=== PATIENT | female | born 1955 | race Caucasian/White ===

== ENCOUNTER 2017-04-06 12:50 | Observation (INO) | payer OTHER ==
[2017-04-06 16:04] VITALS: PULSE 51
[2017-04-06] MEDS ORDERED: ACETAMINOPHEN 325 MG TAB PO PRN (16:30)
[2017-04-06] MEDS ORDERED: MAGNESIUM HYDROXIDE 30ML CUP PO PRN (16:30)
[2017-04-06] MEDS ORDERED: HYDROCODONE/APAP (5/325) TAB PO PRN (16:30)
[2017-04-06] MEDS ORDERED: DOCUSATE SODIUM 100 MG CAP PO PRN (16:30)
[2017-04-06] MEDS ORDERED: NACL 0.9% 3 ML SYG IV SCH (16:30)
--- NOTE | 2017-04-06 17:01 | HP ---
Date/Time of Note Date/Time of Note DATE: 04/06/17 TIME: 16:46 Assessment/Plan VTE Prophylaxis VTE Prophylaxis Intervention: SCD's Assessment/Plan Assessment/Plan 61 yo F with pmhx CAD sp PCI with 2 weeks of chest pain in setting of subacute cough. d/dx includes ACS (unlikely given duration of symptoms), v angina v other PLAN serial troponins TTE lipids, a1c, tsh cont home meds will try to reach pt's collector of port in the AM HPI/ROS Admit Date/Time Admit Date/Time Apr 06, 2017 at 14:15 Hx of Present Illness CC chest pain x 2 weeks HPI 61 yo F with pmhx CAD sp PCI July 2016, HTN, HL presents with 2 weeks of progressive chest pain in the setting of subacute cough x 4 weeks. Pt went to PCP 10 days ago for this coughing and chest discomfort, had negative CXR and was diagnosed with bronchitis given a course of abx, and her chest pain has persisted. Pt reports the discomfort includes all of her chest from the bottom of her neck to the top of her abdomen, occasionally radiates to her R arm. No leg swelling. No rashes. Also has SOB during these episodes. No orthopnea. home meds: asa, plavix, atorva, lisinopril PMHx as per HPI Soc Hx: lives in the community with and daughter Exam/Review of Systems Vital Signs Vitals Vital Signs Date Time Temp Pulse Resp B/P Pulse Ox O2 Delivery O2 Flow Rate FiO2 04/06/17 16:04 51 Exam Exam nad EOMI MMM no thyromegaly no cervical LAD no mrg lungs clear abd soft no rashes no edema OSH labs reviewed. ChemP with Cr 0.73, gluc 104, d dimer 0.2, lipase 32, trop at noon <0.01 CBC iwth WBCs 4.5, hgb 13.8, pl 188 EKG with WTc 424, sinus shawn with rate 53 Medications Medications Current Medications Aspirin (Aspirin) 81 mg DAILY PO ; Start 04/07/17 at 09:00 Acetaminophen (Tylenol Tab) 650 mg Q6H PRN PO PAIN LEVEL 1-3 OR FEVER; Start 04/06/17 at 16:30 Acetaminophen/ Hydrocodone Bitart (Clarkia (5/325)) 1 tab Q6H PRN PO PAIN LEVEL 4 -6; Start 04/06/17 at 16:30 Docusate Sodium (Colace) 100 mg Q12H PRN PO CONSTIPATION; Start 04/06/17 at 16 :30 Magnesium Hydroxide (Milk Of Mag) 30 ml DAILY PRN PO CONSTIPATION; Start 04/06 at 16:30 Enoxaparin Sodium (Lovenox) 40 mg DAILY SC ; Start 04/07/17 at 09:00 IDRIS WOODSON MD Apr 06, 2017 17:00
[2017-04-06 19:47] VITALS: BP 116/70; RESP 20
[2017-04-06 20:07] VITALS: PULSE 51
[2017-04-06] MEDS ORDERED: ATORVASTATIN 40 MG TAB PO SCH (21:00)
--- NOTE | 2017-04-06 23:12 | RADRPT ---
PROCEDURE: XR Chest. CLINICAL INDICATION: CHEST PAIN TECHNIQUE: PA and Lateral views of the chest were obtained. COMPARISON: None. FINDINGS: The cardiomediastinal silhouette is within normal limits. The lungs are clear. No signs of pleural f luid or pneumothorax are seen. No suspicious osseous lesions. IMPRESSION: No evidence for active cardiopulmonary disease. [place] Physician Date Time Electronically viewed and signed by [place] Physician on 04/06/2017 23:12 ML/
[2017-04-06 23:40] VITALS: BP 111/67; RESP 18
[2017-04-07] VITALS (9 sets, daily range): BP systolic 94–142; BP diastolic 55–84; PULSE 45–57; RESP 17–20
[2017-04-07 07:24] LABS: BASOPHILS % 0.5 % (0.0-2.0); EOSINOPHILS # 0.2 10^3/ul (0.0-0.5); EOSINOPHILS % 2.6 % (0.0-7.0); HEMATOCRIT 40.4 % (37.0-47.0); HEMOGLOBIN 13.4 g/dl (12.0-16.0); LYMPHOCYTES # 2.7 10^3/ul (0.8-2.9); LYMPHOCYTES % 46.9 % (15.0-51.0); MEAN CORPUSCULAR HEMOGLOBIN 30.7 pg (29.0-33.0); MEAN CORPUSCULAR HGB CONC 33.2 g/dl (32.0-37.0); MEAN CORPUSCULAR VOLUME 92.7 fl (82.0-101.0); MEAN PLATELET VOLUME 10.1 fl (7.4-10.4); MONOCYTE # 0.4 10^3/ul (0.3-0.9); MONOCYTES % 7.2 % (0.0-11.0); NEUTROPHIL # 2.4 10^3/ul (1.6-7.5); NEUTROPHILS % 42.4 % (39.0-77.0); PLATELET COUNT 188 10^3/UL (140-415); RED BLOOD COUNT 4.36 10^6/ul (4.20-5.40); WHITE BLOOD COUNT 5.7 10^3/ul (4.8-10.8)
[2017-04-07] MEDS ORDERED: SOD CHLORIDE 0.9% 250 ML IV ONE (07:30)
[2017-04-07] MEDS ORDERED: NITROGLYCERIN (SL) 0.4 MG TAB SL ONE (07:30)
[2017-04-07 07:43] LABS: ALBUMIN 4.1 g/dl (3.3-4.9); ALBUMIN/GLOBULIN RATIO 1.46; BILIRUBIN,INDIRECT 0.8 mg/dl (0-1.1); BILIRUBIN,TOTAL 0.8 mg/dl (0.2-1.3); CALCIUM 9.7 mg/dl (8.4-10.2); CREATININE 0.84 mg/dl (0.44-1.00); MAGNESIUM 1.8 mg/dl (1.7-2.5); POTASSIUM 4.7 mmol/L (3.5-5.1); TOTAL PROTEIN 6.9 g/dl (6.1-8.1)
--- NOTE | 2017-04-07 08:04 | RADRPT ---
PROCEDURE: US Abdomen (right upper quadrant). CLINICAL INDICATION: Right upper quadrant abdomen pain. TECHNIQUE: Multiple real-time longitudinal and transverse images of the right upper quadrant of th e abdomen were acquired utilizing a curved array transducer. Images were reviewed on a high-resoluti on PACS workstation. COMPARISON: None FINDINGS: The liver is normal in size and normal in echogenicity. There is no focal hepatic lesion. Color Doppler and pulsed Doppler sonography demonstrate normal a ntegrade flow in the portal vein. There may be a small amount of sludge in the gallbladder. The gallbladder is otherwise normal with n o stones or wall thickening. There is no pericholecystic fluid collection. The bile ducts are mildly dilated with the common bile duct measuring 7.5 mm in diameter. The visualized portions of the pancreas are unremarkable with obscuration of the tail of the pancrea s. No free fluid is present. The right kidney measures 11.8 cm. There is normal echogenicity of the right kidney. There is no perinephric fluid collection. No hydronephrosis, mass, or calculus is seen. IMPRESSION: 1. Possible small amount of sludge in the gallbladder. 2. Mildly dilated common bile duct. Correlation with MRCP should be considered. 3. Otherwise normal right upper quadrant abdomen ultrasound. RPTAT: QQ .Samuel Shrestha MD, MD Date Time Electronically viewed and signed by .Samuel Shrestha MD, on 04/07/2017 08:04 .R/
[2017-04-07 08:12] LABS: THYROID STIMULATING HORMONE 1.37 MIU/L (0.465-4.680)
[2017-04-07 08:23] LABS: CK-MB 0.78 ng/ml (0.0-2.4)
[2017-04-07 08:33] LABS: TROPONIN-I < 0.012 ng/ml (0.00-0.12)
[2017-04-07] MEDS ORDERED: LISINOPRIL 5 MG TAB PO SCH (09:00)
[2017-04-07] MEDS ORDERED: ASPIRIN 81 MG TAB PO SCH (09:00)
[2017-04-07] MEDS ORDERED: ENOXAPARIN 40 MG/0.4 ML SYG SC SCH (09:00)
[2017-04-07] MEDS ORDERED: CLOPIDOGREL 75 MG TAB PO SCH (09:00)
--- NOTE | 2017-04-07 11:39 | RADRPT ---
Echocardiogram Report Patient Name: BETHANY COOPER Gender: Female Date: 1955 Study Date: 07-Apr-2017 Hat Steamer: Augustin Manzo [facility] Location: 5545-A Ref. Physician: IDRIS WOODSON Quality: Adequate Procedures: Transthoracic echocardiogram with complete 2D, M-Mode, and doppler examination. Indications: Chest Pain. 2D/M Mode Doppler Measurement Value Normal Ranges Measurement Value Normal Ranges LVIDd 2D 4.7 3.5 - 5.6 cm AV Peak Navjot 1.6 m/sec LVIDs 2D 3.2 2.1 - 4.1 cm AV Peak PG 10.5 mmHg LVPWd 2D 1.3 0.6 - 1.1 cm LVOT Peak Navjot 1.2 m/sec IVSd 2D 1.3 0.6 - 1.1 cm LVOT Peak PG 5.4 mmHg AoR Diam 2D 2.9 2.0 - 3.7 cm MV E Peak Navjot 0.7 m/sec EDV 2D 100.3 cm3 MV A Peak Navjot 0.7 m/sec ESV 2D 33.1 cm3 MV E/A 1.0 LA Dimen 2D 4.0 2.3 - 4.0 cm MV Decel Time 258 msec MV Decel Hardy 3 MV E/A 1.0 TR Peak Navjot 2.4 m/sec TR Peak PG 23.0 mmHg RVSP 31.0 mmHg Findings Left Ventricle: Normal left ventricular systolic function. Normal left ventricular cavity size. Normal left ventricular wall thickness. Ejection fraction is visually estimated at 65 %. Tissue Doppler/Mitral Doppler indices are within normal limits. Right Ventricle: Normal right ventricular size. Normal right ventricular systolic function. Left Atrium: The left atrium is normal in size. Right Atrium: The right atrium is normal in size. Mitral Valve: Normal appearance and function of the mitral valve with trace physiologic regurgitation. Aortic Valve: Normal appearance of the aortic valve. No significant aortic stenosis or insufficiency. Tricuspid Valve: Normal appearance of the tricuspid valve. Estimated peak PA systolic pressure 25 mmHg. There is trace tricuspid regurgitation. Pulmonic Valve: Pulmonic valve not well visualized. There is trace pulmonic regurgitation. Pericardium: Normal pericardium with no significant pericardial effusion. Aorta: Normal aortic root. IVC: Normal size and normal respiratory collapse consistent with normal right atrial pressure. Conclusions 1.Normal left ventricular systolic function. Normal left ventricular cavity size. Normal left ventricular wall thickness. Ejection fraction is visually estimated at 65 %. Tissue Doppler/Mitral Doppler indices are within normal limits. 2.No significant valvular stenosis or regurgitation seen. 3.Estimated peak PA systolic pressure 25 mmHg based on RA pressure of 3 mmHg. Electronically Signed By: Ino Cano 07-Apr-2017 11:38:33 -0800 Patient Name: BETHANY COOPER Study Date: 07-Apr-2017 [id number]
--- NOTE | 2017-04-07 13:21 | RADRPT ---
Vent Rate: 49 bpm RR Interval: 0 msec KS Interval: 142 msec QRS Duration: 100 msec QT Interval: 464 msec QTC Interval: 419 msec P-R-T Romeo: 18 - 7 - 23 degrees Marked sinus bradycardia Abnormal ECG Electronically Signed By: Jared Bunn [id number]
[2017-04-07] MEDS ORDERED: LISI2.5T59 PO (14:42)
[2017-04-07] MEDS ORDERED: ASPI81TA3 PO (14:42)
[2017-04-07] MEDS ORDERED: CLOP75TA28 PO (14:42)
[2017-04-07] MEDS ORDERED: ATOR40TA68 PO (14:42)
[2017-04-07] MEDS ORDERED: PANT40TA3 PO (14:43)
--- NOTE | 2017-04-07 14:51 | DS ---
Date/Time of Note Date/Time of Note DATE: 04/07/17 TIME: 14:45 Discharge Summary Admission/Discharge Info Admit Date/Time Apr 06, 2017 at 14:15 Discharge Date/Time Discharge Diagnosis 1. Chest pain, musculoskeletal, follow up with PCP 2. CAD, s/p PCI/stent in July 2016 in [facility], stable, follow up with cardiology 3. GERD, protonix 3. Hypertension, decrease lisinopril for low BP 5. Dyslipidemia, on statin Patient Condition: Stable Hx of Present Illness Hospital Course 61 yo F with pmhx CAD sp PCI July 2016, HTN, HL presents with 2 weeks of progressive chest pain in the setting of subacute cough x 4 weeks. Pt went to PCP 10 days ago for this coughing and chest discomfort, had negative CXR and was diagnosed with bronchitis given a course of abx, and her chest pain has persisted. Pt reports the discomfort includes all of her chest from the bottom of her neck to the top of her abdomen, occasionally radiates to her R arm. No leg swelling. No rashes. Also has SOB during these episodes. No orthopnea. Physical exam with chest wall tenderness on left side chest. Troponin is negative. Unremarkable ECG and echocardiography. Chest pain is considered musculoskeletal, she can talk motrin prn and follow up with PCP. Patient has burning like retrosternal chest pain some nights on laying down, improves with drinking water. I will start her on protonix for GERD. She is advised to quit smoking. Home Meds Active Scripts Pantoprazole* (Protonix*) 40 Mg Tablet.dr, 40 MG PO DAILY, #30 TAB Prov:ROSELIA DOSHI MD 04/07/17 Lisinopril* (Lisinopril*) 2.5 Mg Tablet, 2.5 MG PO DAILY, #30 TAB Prov:ROSELIA DOSHI MD 04/07/17 Aspirin (Aspirin) 81 Mg Chew, 81 MG PO DAILY for 30 Days, TAB Prov:ROSELIA DOSHI MD 04/07/17 Atorvastatin* (Atorvastatin*) 40 Mg Tablet, 40 MG PO HS for 30 Days, TAB Prov:ROSELIA DOSHI MD 04/07/17 Clopidogrel Bisulfate (Clopidogrel) 75 Mg Tablet, 75 MG PO DAILY for 30 Days, TAB Prov:ROSELIA DOSHI MD 04/07/17 Follow-up Plan PCP one week cardiology one week Primary Care Provider Not On Staff Doctor Pending Labs Laboratory Tests Test 04/06/17 17:56 04/07/17 00:48 04/07/17 06:46 04/07/17 06:49 Troponin I < 0.012ng/ml (0.00-0.12) < 0.012ng/ml (0.00-0.12) < 0.012ng/ml (0.00-0.12) White Blood Count 5.710^3/ul (4.8-10.8) Red Blood Count 4.3610^6/ul (4.20-5.40) Hemoglobin 13.4g/dl (12.0-16.0) Hematocrit 40.4% (37.0-47.0) Mean Corpuscular Volume 92.7fl (82.0-101.0) Mean Corpuscular Hemoglobin 30.7pg (29.0-33.0) Mean Corpuscular Hemoglobin Concent 33.2g/dl (32.0-37.0) Red Cell Distribution Width 13.0% (11.5-14.5) Platelet Count 45859^3/UL (140-415) Mean Platelet Volume 10.1fl (7.4-10.4) Neutrophils % 42.4% (39.0-77.0) Lymphocytes % 46.9% (15.0-51.0) Monocytes % 7.2% (0.0-11.0) Eosinophils % 2.6% (0.0-7.0) Basophils % 0.5% (0.0-2.0) Nucleated Red Blood Cells % 0.0/100WBC (0.0-0.0) Neutrophils # 2.410^3/ul (1.6-7.5) Lymphocytes # 2.710^3/ul (0.8-2.9) Monocytes # 0.410^3/ul (0.3-0.9) Eosinophils # 0.210^3/ul (0.0-0.5) Basophils # 0.010^3/ul (0.0-0.1) Nucleated Red Blood Cells # 0.010^3/ul (0.0-0.0) Sodium Level 143mmol/L (135-144) Potassium Level 4.7mmol/L (3.5-5.1) Chloride Level 110mmol/L (97-110) Carbon Dioxide Level 25mmol/L (21-31) Anion Gap 13 (8-16) Blood Urea Nitrogen 16mg/dl (7-20) Creatinine 0.84mg/dl (0.44-1.00) Glucose Level 84mg/dl (70-220) Hemoglobin A1c 5.7% (0-5.9) Calcium Level 9.7mg/dl (8.4-10.2) Magnesium Level 1.8mg/dl (1.7-2.5) Total Bilirubin 0.8mg/dl (0.2-1.3) Direct Bilirubin 0.00mg/dl (0.00-0.20) Indirect Bilirubin 0.8mg/dl (0-1.1) Aspartate Amino Transf (AST/SGOT) 22IU/L (15-46) Alanine Aminotransferase (ALT/SGPT) 35IU/L (13-69) Alkaline Phosphatase 59IU/L (42-121) B-Type Natriuretic Peptide 208PG/ML (0-125) Total Protein 6.9g/dl (6.1-8.1) Albumin 4.1g/dl (3.3-4.9) Globulin 2.80g/dl (1.3-3.2) Albumin/Globulin Ratio 1.46 Triglycerides Level 141mg/dl (0-149) Cholesterol Level 173mg/dl (100-200) LDL Cholesterol, Calculated 89mg/dl HDL Cholesterol 56mg/dl (35-98) Cholesterol/HDL Ratio 3.0RATIO Thyroid Stimulating Hormone (TSH) 1.370MIU/L (0.465-4.680) Creatinine Kinase MB (Mass) 0.78ng/ml (0.0-2.4) ROSELIA DOSHI MD Apr 07, 2017 14:51
--- NOTE | 2017-04-07 15:32 | CONS ---
DATE OF ADMISSION: 04/06/2017 DATE OF CONSULTATION: 04/07/2017 CARDIOLOGY CONSULTATION REASON FOR CONSULTATION: Chest pain, assess for acute coronary syndrome. REQUESTING PHYSICIAN: Karuna Doshi MD HISTORY OF PRESENT ILLNESS: Ms. Michel is a 61-year-old female with history of hypertension, dyslipidemia, diabetes mellitus, ongoing tobacco usage, prior PTCA and stent placement, 07/2016, who initially presented with complaints of substernal chest pain. Patient states chest pain has been o ngoing for approximately 3 days with little stop. The patient describes the chest pain as a stabbin g sensation, worse with movement of her upper torso, deep breath. Patient additionally states the p ain has woken her up in the night, and describes it as a stabbing with a pressure-like component at night. Upon arrival in the emergency department, temperature of 97.9, blood pressure 116/70, pulse 51, respiratory rate 20, saturating 94%. The patient's labs revealed a negative troponin. Sodium 1 43, potassium 4.7, creatinine 0.84, BUN 16. BNP of 208. White blood cell count 5.7, hemoglobin 13. 4, platelet count 188. The patient underwent a chest x-ray revealing no acute cardiopulmonary abnor malities. The patient underwent a gallbladder ultrasound revealing possible small amount of sludge in the gallbladder, mildly dilated common bile duct. Patient's EKG revealed sinus bradycardia, rate of 49, normal axis, normal intervals, with isolated T-wave inversion in lead III. The patient was subsequently admitted to the floor and since admitted to floor, has had a total of 3 negative tropon ins, ruling her out for acute myocardial infarction. The patient continues to complain of chest mary beth n with a feeling of chest pain on palpation of her chest. PAST MEDICAL HISTORY: As above in HPI. MEDICATIONS CURRENTLY IN HOSPITAL: 1. Aspirin 81 mg daily. 2. Lovenox subcutaneous daily. 3. Plavix 75 mg daily. 4. Zestril 5 mg daily. 5. Lipitor 40 mg at bedtime. 6. Tylenol p.r.n. 7. [place] p.r.n. 8. Milk of magnesia p.r.n. ALLERGIES: NO KNOWN DRUG ALLERGIES. SOCIAL HISTORY: Positive tobacco, social ETOH, no illicit drug use. FAMILY HISTORY: No history of sudden cardiac or early CAD. REVIEW OF SYSTEMS: As above in HPI. CONSTITUTIONAL: No fevers, chills. PULMONARY: No current shortness of breath. CARDIOVASCULAR: Intermittent chest pain. GASTROINTESTINAL: No vomiting. GENITOURINARY: No hematuria. MUSCULOSKELETAL: Degenerative joint disease. PSYCHIATRIC: The patient denies depression. NEUROLOGIC: No documented history of CVA. PHYSICAL EXAMINATION VITAL SIGNS: Temperature of 98.1, blood pressure most recently 94/55, pulse 60, respirations 18, sa turating 96%. GENERAL: The patient is alert, awake and complaining of intermittent chest pain. NECK: JVP approximately 8 cm water. CHEST: Fair air movement throughout. HEART: Regular rate and rhythm. Normal S1, S2, I/ systolic murmur, nondisplaced PMI. ABDOMEN: Positive bowel sounds, soft. EXTREMITIES: No edema, 1+ pulses bilaterally, posterior tibial. LABORATORIES: As above in HPI with most recently from today, sodium 142, potassium 4.7, creatinine of 0.84. Troponin negative x3. LDL 89, HDL 56. TSH 1.37. White blood cells 5.7, hemoglobin 13.4, platelet count 188. IMAGING STUDIES: As above in HPI. No further imaging studies for my review at this time. ECG: As above in HPI. No further electrocardiograms for my review at this time. IMPRESSION: 1. Chest pain, atypical at this time, symptomatology for cardiac etiology with negative troponins x 3 and a 2D echo that is interpreted as having normal EF with no wall motion abnormalities. 2. Abnormal electrocardiogram with isolated T-wave inversion in lead III. Negative troponin x3. N ormal EF by echo. 3. History of hypertension with borderline hypotension currently. 4. Sinus bradycardia. 5. History of percutaneous transluminal coronary angioplasty and stent placement, most recently 2016. RECOMMENDATIONS: 1. At this time, would maintain patient on aspirin and Plavix therapy for stent patency and prevent ion of further cardiovascular events. 2. Continue the patient's Zestril as tolerated. 3. Continue the patient's current statin therapy. 4. If patient should get a followup EKG and if reveals no significant changes at that time, the pat ient would be reasonable for discharge with further outpatient followup and outpatient cardiac stres s testing with her primary technical marketing consultant. Thank you for allowing me to take part in the care of this patient. I will continue to follow along very closely with you. Further recommendations will be made as the patient progresses through her inpatient hospital clinical course. Dictated By: HECTOR CONKLIN/JOEY Conf#: [id number] DID#: [id number] CC: KARUNA DOSHI MD; JAMIE TAM MD;*EndCC*
[2017-04-07] MEDS ORDERED: INFLUENZA VIRUS VACCINE 0.5 ML SYG IM* ONE (21:00)
== END 2017-04-07 15:38 | disposition home or self-care (01) ==
LOC: INTOOBSV 14:15 → MS4 14:15
PROVIDERS: ADMIT Internal Medicine; ATTEND Internal Medicine
DX: R07.89 Other chest pain (principal); I25.10 Atherosclerotic heart disease of native coronary artery without angina pectoris; Z95.5 Presence of coronary angioplasty implant and graft; I10 Essential (primary) hypertension; E78.5 Hyperlipidemia, unspecified; E11.9 Type 2 diabetes mellitus without complications; K21.9 Gastro-esophageal reflux disease without esophagitis; Z79.82 Long term (current) use of aspirin; Z72.0 Tobacco use
CPT/HCPCS: 71020; 76705; 80053; 80061; 82553; 83036; 83735; 83880; 84443; 84484; 85025; 93005; 93306; J1650; J7040; Z7500; Z7610; 90686; G0378